=== PATIENT | female | born 1980 | race Caucasian/White ===

== ENCOUNTER 2018-04-10 14:12 | Emergency (ER) | payer MEDICAID ==
[2018-04-10 16:00] LABS: ADD MAN DIFF? NO
[2018-04-10] MEDS ORDERED: METOCLOPRAMIDE 10 MG INJ IV (16:00)
[2018-04-10 16:03] LABS: BASOPHILS % 0.3 % (0.0-2.0); EOSINOPHILS # 0.2 10^3/ul (0.0-0.5); EOSINOPHILS % 1.5 % (0.0-7.0); HEMATOCRIT 35.5 % (37.0-47.0); HEMOGLOBIN 11.5 g/dl (12.0-16.0); LYMPHOCYTES # 1.7 10^3/ul (0.8-2.9); LYMPHOCYTES % 14.7 % (15.0-51.0); MEAN CORPUSCULAR HEMOGLOBIN 27.6 pg (29.0-33.0); MEAN CORPUSCULAR HGB CONC 32.4 g/dl (32.0-37.0); MEAN CORPUSCULAR VOLUME 85.3 fl (82.0-101.0); MEAN PLATELET VOLUME 10.7 fl (7.4-10.4); MONOCYTE # 0.6 10^3/ul (0.3-0.9); MONOCYTES % 5.3 % (0.0-11.0); NEUTROPHIL # 8.9 10^3/ul (1.6-7.5); NEUTROPHILS % 77.9 % (39.0-77.0); PLATELET COUNT 245 10^3/UL (140-415); RED BLOOD COUNT 4.16 10^6/ul (4.20-5.40); RED CELL DISTRIBUTION WIDTH 15.6 % (11.5-14.5)
[2018-04-10 16:03] LABS: WHITE BLOOD COUNT 11.5 10^3/ul (4.8-10.8)
[2018-04-10] MEDS: ACETAMINOPHEN 500 MG TAB PO (16:05)
[2018-04-10] MEDS: SOD CHLORIDE 0.9% 1,000 ML IV (16:05)
[2018-04-10] MEDS: METOCLOPRAMIDE 10 MG TAB PO (16:06)
[2018-04-10 16:12] LABS: ADD UMIC NO; UR ASCORBIC ACID NEGATIVE (NEGATIVE); UR BILIRUBIN (Dip) NEGATIVE (NEGATIVE); UR BLOOD (Dip) NEGATIVE (NEGATIVE); UR CLARITY CLEAR (CLEAR); UR COLOR YELLOW (YELLOW); UR GLUCOSE (Dip) NEGATIVE (NEGATIVE); UR KETONES (Dip) NEGATIVE (NEGATIVE); UR LEUKOCYTE ESTERASE (Dip) NEGATIVE Leu/ul (NEGATIVE); UR NITRITE (Dip) NEGATIVE (NEGATIVE); UR SPECIFIC GRAVITY (Dip) 1.009 (1.003-1.030); UR TOTAL PROTEIN (Dip) NEGATIVE (NEGATIVE); UR UROBILINOGEN (Dip) NEGATIVE (NEGATIVE)
[2018-04-10 16:23] LABS: ALANINE AMINOTRANSFERASE 12 IU/L (13-69); ALBUMIN 4.1 g/dl (3.3-4.9); ALBUMIN/GLOBULIN RATIO 1.13; ALKALINE PHOSPHATASE 46 IU/L (42-121); ANION GAP 11 (5-13); ASPARTATE AMINO TRANSFERASE 16 IU/L (15-46); BILIRUBIN,INDIRECT 0.1 mg/dl (0-1.1); BILIRUBIN,TOTAL 0.1 mg/dl (0.2-1.3); BLOOD UREA NITROGEN 7 mg/dl (7-20); CALCIUM 9.3 mg/dl (8.4-10.2); CARBON DIOXIDE 23 mmol/L (21-31); CHLORIDE 103 mmol/L (97-110); CREATININE 0.41 mg/dl (0.44-1.00); Estimated GFR > 60 mL/min (>60); GLUCOSE 109 mg/dl (70-220); POTASSIUM 3.8 mmol/L (3.5-5.1); SODIUM 137 mmol/L (135-144); TOTAL PROTEIN 7.7 g/dl (6.1-8.1)
== END 2018-04-10 18:45 | disposition home or self-care (01) ==
LOC: FTE 18:45
DX: O26.891 Other specified pregnancy related conditions, first trimester (principal); R10.2 Pelvic and perineal pain; O21.9 Vomiting of pregnancy, unspecified; Z3A.10 10 weeks gestation of pregnancy
CPT/HCPCS: 36415; 76801; 80053; 81003; 84702; 85025; 86900; 86901; 96360; 96361; 99285-25

== ENCOUNTER 2018-07-21 17:10 | Outpatient (CLI) | payer MEDICAID ==
[2018-07-21 17:50] LABS: ADD UMIC NO; UR ASCORBIC ACID NEGATIVE (NEGATIVE); UR BACTERIA FEW /HPF (NONE SEEN); UR BILIRUBIN (Dip) NEGATIVE (NEGATIVE); UR BLOOD (Dip) NEGATIVE (NEGATIVE); UR CLARITY SLIGHTLY CLOUDY (CLEAR); UR COLOR STRAW (YELLOW); UR GLUCOSE (Dip) NEGATIVE (NEGATIVE); UR KETONES (Dip) NEGATIVE (NEGATIVE); UR LEUKOCYTE ESTERASE (Dip) NEGATIVE Leu/ul (NEGATIVE); UR NITRITE (Dip) NEGATIVE (NEGATIVE); UR RBC 1 /HPF (0-5); UR SPECIFIC GRAVITY (Dip) 1.004 (1.003-1.030); UR SQUAMOUS EPITHELIAL CELL FEW /HPF (FEW); UR TOTAL PROTEIN (Dip) NEGATIVE (NEGATIVE); UR UROBILINOGEN (Dip) NEGATIVE (NEGATIVE); UR WBC 0 /HPF (0-5)
== END 2018-07-21 20:23 | disposition home or self-care (01) ==
LOC: OBT 17:10 → L-D 17:11 → OBT 20:23
DX: O26.892 Other specified pregnancy related conditions, second trimester (principal); R10.2 Pelvic and perineal pain; O09.522 Supervision of elderly multigravida, second trimester; Z3A.25 25 weeks gestation of pregnancy
CPT/HCPCS: 76815; 76817; 81001; 81003

== ENCOUNTER 2018-09-29 11:34 | Outpatient (CLI) | payer MEDICAID ==
[2018-09-29 12:41] LABS: ADD MAN DIFF? NO
[2018-09-29 12:44] LABS: BASOPHILS % 0.2 % (0.0-2.0); EOSINOPHILS # 0.2 10^3/ul (0.0-0.5); EOSINOPHILS % 1.2 % (0.0-7.0); HEMATOCRIT 35.6 % (37.0-47.0); HEMOGLOBIN 11.7 g/dl (12.0-16.0); LYMPHOCYTES # 1.7 10^3/ul (0.8-2.9); LYMPHOCYTES % 13.9 % (15.0-51.0); MEAN CORPUSCULAR HEMOGLOBIN 28.5 pg (29.0-33.0); MEAN CORPUSCULAR HGB CONC 32.9 g/dl (32.0-37.0); MEAN CORPUSCULAR VOLUME 86.6 fl (82.0-101.0); MEAN PLATELET VOLUME 10.4 fl (7.4-10.4); MONOCYTE # 0.5 10^3/ul (0.3-0.9); MONOCYTES % 4.4 % (0.0-11.0); NEUTROPHIL # 9.7 10^3/ul (1.6-7.5); NEUTROPHILS % 79.9 % (39.0-77.0); PLATELET COUNT 275 10^3/UL (140-415); RED BLOOD COUNT 4.11 10^6/ul (4.20-5.40); RED CELL DISTRIBUTION WIDTH 13.8 % (11.5-14.5)
[2018-09-29 12:44] LABS: WHITE BLOOD COUNT 12.2 10^3/ul (4.8-10.8)
[2018-09-29 12:58] LABS: ADD UMIC NO; UR ASCORBIC ACID NEGATIVE (NEGATIVE); UR BACTERIA FEW /HPF (NONE SEEN); UR BILIRUBIN (Dip) NEGATIVE (NEGATIVE); UR BLOOD (Dip) NEGATIVE (NEGATIVE); UR CLARITY SLIGHTLY CLOUDY (CLEAR); UR COLOR STRAW (YELLOW); UR GLUCOSE (Dip) NEGATIVE (NEGATIVE); UR KETONES (Dip) NEGATIVE (NEGATIVE); UR LEUKOCYTE ESTERASE (Dip) NEGATIVE Leu/ul (NEGATIVE); UR NITRITE (Dip) NEGATIVE (NEGATIVE); UR RBC 2 /HPF (0-5); UR SPECIFIC GRAVITY (Dip) 1.004 (1.003-1.030); UR SQUAMOUS EPITHELIAL CELL FEW /HPF (FEW); UR TOTAL PROTEIN (Dip) NEGATIVE (NEGATIVE); UR UROBILINOGEN (Dip) NEGATIVE (NEGATIVE); UR WBC 8 /HPF (0-5)
== END 2018-09-29 14:00 | disposition home or self-care (01) ==
LOC: OBT 11:34 → L-D 11:36 → OBT 14:00
DX: O62.9 Abnormality of forces of labor, unspecified (principal); O24.414 Gestational diabetes mellitus in pregnancy, insulin controlled; O09.523 Supervision of elderly multigravida, third trimester; O34.219 Maternal care for unspecified type scar from previous cesarean delivery; Z3A.35 35 weeks gestation of pregnancy
CPT/HCPCS: 76817; 76818; 81001; 81003; 82962; 85025; 87086

== ENCOUNTER 2018-10-10 11:11 | Outpatient (CLI) | payer MEDICAID ==
[2018-10-10 12:50] LABS: ADD MAN DIFF? NO
[2018-10-10 12:51] LABS: WHITE BLOOD COUNT 9.8 10^3/ul (4.8-10.8)
[2018-10-10 12:51] LABS: BASOPHILS % 0.3 % (0.0-2.0); EOSINOPHILS # 0.2 10^3/ul (0.0-0.5); EOSINOPHILS % 2.3 % (0.0-7.0); HEMATOCRIT 37.7 % (37.0-47.0); HEMOGLOBIN 12.2 g/dl (12.0-16.0); LYMPHOCYTES # 1.6 10^3/ul (0.8-2.9); LYMPHOCYTES % 16.1 % (15.0-51.0); MEAN CORPUSCULAR HEMOGLOBIN 28.2 pg (29.0-33.0); MEAN CORPUSCULAR HGB CONC 32.4 g/dl (32.0-37.0); MEAN CORPUSCULAR VOLUME 87.3 fl (82.0-101.0); MEAN PLATELET VOLUME 10.7 fl (7.4-10.4); MONOCYTE # 0.5 10^3/ul (0.3-0.9); MONOCYTES % 4.9 % (0.0-11.0); NEUTROPHIL # 7.5 10^3/ul (1.6-7.5); NEUTROPHILS % 75.9 % (39.0-77.0); PLATELET COUNT 258 10^3/UL (140-415); RED BLOOD COUNT 4.32 10^6/ul (4.20-5.40); RED CELL DISTRIBUTION WIDTH 13.7 % (11.5-14.5)
[2018-10-10 13:12] LABS: ALANINE AMINOTRANSFERASE 13 IU/L (13-69); ALBUMIN 3.6 g/dl (3.3-4.9); ALBUMIN/GLOBULIN RATIO 1.05; ALKALINE PHOSPHATASE 104 IU/L (42-121); ANION GAP 10 (5-13); ASPARTATE AMINO TRANSFERASE 15 IU/L (15-46); BILIRUBIN,INDIRECT 0.3 mg/dl (0-1.1); BILIRUBIN,TOTAL 0.3 mg/dl (0.2-1.3); BLOOD UREA NITROGEN 5 mg/dl (7-20); CALCIUM 8.8 mg/dl (8.4-10.2); CARBON DIOXIDE 22 mmol/L (21-31); CHLORIDE 106 mmol/L (97-110); CREATININE 0.41 mg/dl (0.44-1.00); Estimated GFR > 60 mL/min (>60); GLUCOSE 67 mg/dl (70-220); POTASSIUM 4.6 mmol/L (3.5-5.1); SODIUM 138 mmol/L (135-144); URIC ACID 4.3 mg/dl (3.1-7.9)
== END 2018-10-10 13:44 | disposition home or self-care (01) ==
LOC: OBT 11:11 → L-D 11:11 → OBT 13:44
DX: O24.414 Gestational diabetes mellitus in pregnancy, insulin controlled (principal); O09.523 Supervision of elderly multigravida, third trimester; O36.8130 Decreased fetal movements, third trimester, not applicable or unspecified; Z3A.37 37 weeks gestation of pregnancy
CPT/HCPCS: 36415; 76818; 80053; 84560; 85025

== ENCOUNTER 2018-10-17 02:50 | Inpatient (IN) | payer MEDICAID ==
[2018-10-17] MEDS ORDERED: METHYLERGONOVINE 0.2 MG INJ IM ×2 (05:00→17:30)
[2018-10-17] MEDS ORDERED: CLINDAMYCIN 900 MG/D5W (PMX) 50 ML IVPB (05:00)
[2018-10-17] MEDS ORDERED: BUTORPHANOL 2 MG INJ IV (05:00)
[2018-10-17] MEDS ORDERED: CARBOPROST 250 MCG INJ IM ×2 (05:00→17:30)
[2018-10-17] MEDS ORDERED: OXYTOCIN 30 UNITS/LR 500 ML IV ×2 (05:00→17:30)
[2018-10-17] MEDS ORDERED: MISOPROSTOL 200 MCG TAB PR ×2 (05:00→17:30)
[2018-10-17] MEDS ORDERED: TERBUTALINE 1 MG/ML INJ SC (05:00)
[2018-10-17] MEDS ORDERED: ONDANSETRON 4 MG INJ IV ×2 (05:00→13:30)
[2018-10-17] MEDS: LACTATED RINGER'S 1,000 ML IV ×4 (05:15→18:27)
[2018-10-17 06:00] LABS: ADD MAN DIFF? NO
[2018-10-17 06:07] LABS: WHITE BLOOD COUNT 10.1 10^3/ul (4.8-10.8)
[2018-10-17 06:07] LABS: BASOPHILS % 0.4 % (0.0-2.0); EOSINOPHILS # 0.2 10^3/ul (0.0-0.5); EOSINOPHILS % 1.9 % (0.0-7.0); HEMATOCRIT 35.4 % (37.0-47.0); HEMOGLOBIN 12.1 g/dl (12.0-16.0); LYMPHOCYTES # 1.9 10^3/ul (0.8-2.9); LYMPHOCYTES % 18.9 % (15.0-51.0); MEAN CORPUSCULAR HEMOGLOBIN 29.2 pg (29.0-33.0); MEAN CORPUSCULAR HGB CONC 34.2 g/dl (32.0-37.0); MEAN CORPUSCULAR VOLUME 85.3 fl (82.0-101.0); MONOCYTE # 0.5 10^3/ul (0.3-0.9); MONOCYTES % 5.1 % (0.0-11.0); NEUTROPHIL # 7.4 10^3/ul (1.6-7.5); NEUTROPHILS % 73.4 % (39.0-77.0); PLATELET COUNT 264 10^3/UL (140-415); RED BLOOD COUNT 4.15 10^6/ul (4.20-5.40); RED CELL DISTRIBUTION WIDTH 13.9 % (11.5-14.5)
[2018-10-17 06:26] LABS: PROTIME 11.2 Sec (11.9-14.9); PT RATIO 0.9
[2018-10-17 07:15] LABS: HEPATITIS B SURFACE ANTIGEN NEGATIVE (NEGATIVE)
[2018-10-17 08:24] LABS: GLUCOSE 77 mg/dl (70-220)
[2018-10-17] MEDS: GENTAMICIN 80 MG/NS (PMX) 50 ML IVPB ×2 (10:00→20:32)
[2018-10-17] MEDS ORDERED: OXYTOCIN 10 UNIT INJ (11:58)
[2018-10-17] MEDS ORDERED: morphine SULFATE/PF (10 MG/10 ML) INJ (11:58)
[2018-10-17] MEDS ORDERED: FENTAnyl 50 MCG/ML VIAL ×2 (12:35→12:47)
[2018-10-17] MEDS ORDERED: DIPHENHYDRAMINE 50 MG INJ IV (13:30)
[2018-10-17] MEDS ORDERED: TRIMETHOBENZAMIDE 100 MG/ML VIAL IM (13:30)
[2018-10-17] MEDS ORDERED: NALOXONE (0.4 MG/ML) INJ IV (13:30)
[2018-10-17] MEDS ORDERED: morphine 2 MG INJ IV (13:30)
[2018-10-17] MEDS ORDERED: DEXTROSE 50% 50 ML SYRINGE IV ×2 (14:00)
[2018-10-17] MEDS ORDERED: GLUCOSE GEL 15 GRAM TUBE PO ×2 (14:00)
[2018-10-17] MEDS ORDERED: GLUCAGON 1 MG INJ IM (14:00)
[2018-10-17] MEDS ORDERED: GLUCOSE GEL 15 GRAM TUBE BUCCAL (14:00)
[2018-10-17] MEDS: OXYTOCIN 30 UNITS/LR 500 ML IV (14:02)
[2018-10-17] MEDS: CLINDAMYCIN 900 MG/D5W (PMX) 50 ML IVPB ×3 (14:20→22:55)
[2018-10-17] MEDS: KETOROLAC 30 MG INJ IV (15:34)
[2018-10-17] MEDS: metFORMIN (XR) 500 MG TAB PO ×2 (16:40→20:48)
[2018-10-17] MEDS: ACETAMINOPHEN 500 MG TAB PO (16:40)
[2018-10-17] MEDS: ACCU-CHEK XX (20:05)
[2018-10-17] MEDS: SENNA/DOCUSATE NA (8.6MG/50MG) TAB PO (20:42)
[2018-10-17 20:45] LABS: RAPID PLASMA REAGIN NONREACTIVE (NR)
[2018-10-18] MEDS: KETOROLAC 30 MG INJ IV ×2 (00:25→09:36)
[2018-10-18] MEDS: GENTAMICIN 80 MG/NS (PMX) 50 ML IVPB ×3 (03:41→17:40)
[2018-10-18] MEDS: CLINDAMYCIN 900 MG/D5W (PMX) 50 ML IVPB ×2 (06:18→13:46)
[2018-10-18] MEDS: ACCU-CHEK XX ×4 (08:25→20:05)
[2018-10-18] MEDS: metFORMIN (XR) 500 MG TAB PO ×2 (08:33→21:06)
[2018-10-18] MEDS: SENNA/DOCUSATE NA (8.6MG/50MG) TAB PO ×2 (08:33→21:06)
[2018-10-18 08:37] LABS: ADD MAN DIFF? NO
[2018-10-18 08:47] LABS: WHITE BLOOD COUNT 13.4 10^3/ul (4.8-10.8)
[2018-10-18 08:47] LABS: BASOPHILS % 0.1 % (0.0-2.0); EOSINOPHILS # 0.1 10^3/ul (0.0-0.5); EOSINOPHILS % 0.4 % (0.0-7.0); HEMATOCRIT 31.9 % (37.0-47.0); HEMOGLOBIN 10.7 g/dl (12.0-16.0); LYMPHOCYTES # 0.7 10^3/ul (0.8-2.9); LYMPHOCYTES % 5.4 % (15.0-51.0); MEAN CORPUSCULAR HEMOGLOBIN 28.8 pg (29.0-33.0); MEAN CORPUSCULAR HGB CONC 33.5 g/dl (32.0-37.0); MEAN CORPUSCULAR VOLUME 85.8 fl (82.0-101.0); MEAN PLATELET VOLUME 10.8 fl (7.4-10.4); MONOCYTE # 0.6 10^3/ul (0.3-0.9); MONOCYTES % 4.8 % (0.0-11.0); NEUTROPHIL # 11.9 10^3/ul (1.6-7.5); NEUTROPHILS % 88.9 % (39.0-77.0); PLATELET COUNT 202 10^3/UL (140-415); RED BLOOD COUNT 3.72 10^6/ul (4.20-5.40); RED CELL DISTRIBUTION WIDTH 13.8 % (11.5-14.5)
[2018-10-18] MEDS: IBUPROFEN 800 MG TAB PO ×2 (13:46→22:32)
[2018-10-18] MEDS: OXYCODONE/ACETAMINOPHEN (5/325) TAB PO (15:22)
[2018-10-18] MEDS ORDERED: CLINDAMYCIN 900 MG/D5W (PMX) 50 ML IVPB (17:29)
[2018-10-18] MEDS: CLINDAMYCIN 300 MG CAP PO (17:40)
[2018-10-19] MEDS: CLINDAMYCIN 300 MG CAP PO ×4 (00:22→17:56)
[2018-10-19] MEDS: HYDROCODONE/APAP (5/325) TAB PO ×3 (00:39→23:19)
[2018-10-19] MEDS: GENTAMICIN 80 MG/NS (PMX) 50 ML IVPB ×3 (01:18→17:38)
[2018-10-19] MEDS: IBUPROFEN 800 MG TAB PO ×3 (05:49→22:17)
[2018-10-19 06:58] LABS: ADD MAN DIFF? NO
[2018-10-19 07:00] LABS: BASOPHILS % 0.3 % (0.0-2.0); EOSINOPHILS # 0.2 10^3/ul (0.0-0.5); EOSINOPHILS % 1.3 % (0.0-7.0); HEMATOCRIT 29.1 % (37.0-47.0); HEMOGLOBIN 9.8 g/dl (12.0-16.0); LYMPHOCYTES # 1.2 10^3/ul (0.8-2.9); LYMPHOCYTES % 9.8 % (15.0-51.0); MEAN CORPUSCULAR HEMOGLOBIN 29.1 pg (29.0-33.0); MEAN CORPUSCULAR HGB CONC 33.7 g/dl (32.0-37.0); MEAN CORPUSCULAR VOLUME 86.4 fl (82.0-101.0); MEAN PLATELET VOLUME 10.6 fl (7.4-10.4); MONOCYTE # 0.6 10^3/ul (0.3-0.9); MONOCYTES % 5.4 % (0.0-11.0); NEUTROPHIL # 9.8 10^3/ul (1.6-7.5); NEUTROPHILS % 82.8 % (39.0-77.0); PLATELET COUNT 203 10^3/UL (140-415); RED BLOOD COUNT 3.37 10^6/ul (4.20-5.40)
[2018-10-19 07:00] LABS: WHITE BLOOD COUNT 11.8 10^3/ul (4.8-10.8)
[2018-10-19] MEDS: ACCU-CHEK XX ×3 (07:30→20:00)
[2018-10-19] MEDS: LANOLIN HPA 1 PKT TOP (08:29)
[2018-10-19] MEDS: SENNA/DOCUSATE NA (8.6MG/50MG) TAB PO ×2 (08:29→21:12)
[2018-10-19] MEDS: metFORMIN (XR) 500 MG TAB PO ×2 (08:30→21:12)
[2018-10-19] MEDS: NA PHOSPHATE/BIPHOS 133 ML ENEMA PR (17:37)
[2018-10-19] MEDS ORDERED: ACETAMINOPHEN 325 MG TAB PO (18:30)
[2018-10-20] MEDS: CLINDAMYCIN 300 MG CAP PO ×2 (00:15→05:54)
[2018-10-20] MEDS: IBUPROFEN 800 MG TAB PO (05:54)
[2018-10-20 06:40] LABS: ADD MAN DIFF? NO
[2018-10-20 06:42] LABS: WHITE BLOOD COUNT 8.8 10^3/ul (4.8-10.8)
[2018-10-20 06:42] LABS: BASOPHILS % 0.2 % (0.0-2.0); EOSINOPHILS # 0.3 10^3/ul (0.0-0.5); EOSINOPHILS % 3.5 % (0.0-7.0); LYMPHOCYTES # 1.4 10^3/ul (0.8-2.9); LYMPHOCYTES % 15.4 % (15.0-51.0); MEAN CORPUSCULAR HEMOGLOBIN 28.7 pg (29.0-33.0); MEAN CORPUSCULAR HGB CONC 33.3 g/dl (32.0-37.0); MEAN PLATELET VOLUME 10.5 fl (7.4-10.4); MONOCYTE # 0.5 10^3/ul (0.3-0.9); MONOCYTES % 5.7 % (0.0-11.0); NEUTROPHIL # 6.6 10^3/ul (1.6-7.5); NEUTROPHILS % 74.9 % (39.0-77.0); PLATELET COUNT 247 10^3/UL (140-415); RED BLOOD COUNT 3.49 10^6/ul (4.20-5.40); RED CELL DISTRIBUTION WIDTH 13.9 % (11.5-14.5)
[2018-10-20] MEDS: ACCU-CHEK XX (07:30)
[2018-10-20] MEDS: metFORMIN (XR) 500 MG TAB PO (08:58)
[2018-10-20] MEDS: SENNA/DOCUSATE NA (8.6MG/50MG) TAB PO (08:58)
[2018-10-20] MEDS: DIPHTH/TET/ACEL PERTUSS (ADULT) 0.5 ML VIAL IM* (09:00)
[2018-10-20] MEDS: MEASLES,MUMPS,RUBELLA VACCINE INJ SC* (09:00)
== END 2018-10-20 12:00 | disposition home or self-care (01) | DRG 788 ==
LOC: OBT 02:50 → L-D 02:50 → OBT 04:09 → L-D 04:09 → PP1 16:40
PROVIDERS: Obstetrics & Gynecology
PROC: 10D00Z1 Extraction of Products of Conception, Low, Open Approach (ICD-10-PCS; principal; 2018-10-17 14:00)
DX: O24.429 Gestational diabetes mellitus in childbirth, unspecified control (principal); O99.214 Obesity complicating childbirth; E66.01 Morbid (severe) obesity due to excess calories; Z3A.38 38 weeks gestation of pregnancy; Z37.0 Single live birth
CPT/HCPCS: 82947; 82962; 85025; 85610; 85730; 86592; 86850; 86900; 86901; 87340; 99464

== ENCOUNTER 2018-10-28 22:48 | Emergency (ER) | payer MEDICAID | END 2018-10-29 02:59 | disposition home or self-care (01) | LOC: FTE 22:48 | DX: O86.00 Infection of obstetric surgical wound, unspecified (principal); B96.89 Other specified bacterial agents as the cause of diseases classified elsewhere ==

== ENCOUNTER 2018-10-31 15:11 | Emergency (ER) | payer MEDICAID | END 2018-10-31 16:16 | disposition home or self-care (01) | LOC: E/R 15:11 | DX: O90.2 Hematoma of obstetric wound (principal) | CPT/HCPCS: 99281 ==